=== PATIENT | male | born 1970 | race Caucasian/White ===

== ENCOUNTER 2017-12-07 02:18 | Emergency (ER) | payer MEDICAID ==
[~2017-12-07] VITALS: Ht 177.8 cm; Wt 85.0 kg
[~2017-12-07 02:18] MED LIST: ALBU18HF2 IH; ALBU8.5H8 IH; ALBU8HFA PO; CLIN-80 PO; HYDR12.55 PO; IBUP-1986 PO; PRED10TA PO; PRED20TA PO; PRED50TA PO
[2017-12-07] MEDS ORDERED: magnesium 2GM in 50ml NS 50 ML IV ONE (02:30)
[2017-12-07] MEDS ORDERED: normal saline 1000ML IV soln IVB ONE (02:30)
[2017-12-07] MEDS ORDERED: methylPREDNISolone sod succ 125mg/2ml vial IV ONE (02:30)
[2017-12-07] MEDS ORDERED: albuterol 2.5 MG/3 ML nebule CONTNEB PRN (02:30)
[2017-12-07] MEDS ORDERED: ipratropium/albuterol 3ml nebule NEB ONE (02:30)
[2017-12-07 02:46] LABS: BASOPHILS % (AUTO) 0.4 % (0-1); EOSINOPHILS # (AUTO) 0.7 X10'3 (0-0.9); EOSINOPHILS % (AUTO) 8.6 % (0-6); HEMATOCRIT 38.5 % (42.0-52.0); HEMOGLOBIN 12.9 g/dl (14.0-17.9); LYMPHOCYTES % (AUTO) 35.8 % (21-51); MEAN CORPUSCULAR HEMOGLOBIN 28.4 PG (27.0-31.0); MEAN CORPUSCULAR HGB CONC 33.7 % (33.0-36.5); MEAN CORPUSCULAR VOLUME 84.5 FL (78-98); MEAN PLATELET VOLUME 7.4 FL (7.4-10.4); MONOCYTES # (AUTO) 0.8 X10'3 (0-0.9); MONOCYTES % (AUTO) 9.3 % (2-12); NEUTROPHILS # (AUTO) 3.8 X10'3 (1.8-7.7); NEUTROPHILS % (AUTO) 45.9 % (42-75); PLATELET COUNT 290 X10'3 (140-440); RED BLOOD COUNT 4.55 X10'6 (4.70-6.10); RED CELL DISTRIBUTION WIDTH 13.9 % (11.5-14.5); WHITE BLOOD COUNT 8.3 X10'3 (4.5-11.0)
[2017-12-07] MEDS ORDERED: LISI1TAB13 PO (02:56)
[2017-12-07 02:57] LABS: PARTIAL THROMBOPLASTIN TIME 30 SECONDS (22-32); PROTHROMBIN TIME 10.4 SECONDS (9.0-12.0)
[2017-12-07 03:02] LABS: ALANINE AMINOTRANSFERASE 32 U/L (12-78); ALBUMIN 3.8 G/DL (3.4-5.0); ALBUMIN/GLOBULIN RATIO 1.2 (1.1-1.5); ALKALINE PHOSPHATASE 68 IU/L (46-116); ANION GAP 9 (8-16); ASPARTATE AMINO TRANSFERASE 22 U/L (10-37); BILIRUBIN,TOTAL 0.3 MG/DL (0.1-1.0); BLOOD UREA NITROGEN 18 MG/DL (7-18); BUN/CREATININE RATIO 18.8 (5.4-32.0); CALCIUM 8.8 MG/DL (8.5-10.1); CHLORIDE 106 MMOL/L (99-107); CREATININE 0.96 MG/DL (0.60-1.10); GLUCOSE 101 MG/DL (70-104); POTASSIUM 3.4 MMOL/L (3.5-5.1); SODIUM 144 MMOL/L (135-145); TOTAL CARBON DIOXIDE 28.6 MMOL/L (24-32); eGFR 83 ML/MIN
[2017-12-07 03:36] VITALS: BP 145/84
[2017-12-07] MEDS ORDERED: AZIT250T PO (03:56)
[2017-12-07] MEDS ORDERED: PRED10TA23 PO (03:56)
== END 2017-12-07 04:10 | disposition home or self-care (01) ==
LOC: ER 02:19
DX: J45.901 Unspecified asthma with (acute) exacerbation (principal); I10 Essential (primary) hypertension; F12.10 Cannabis abuse, uncomplicated; Z79.899 Other long term (current) drug therapy
CPT/HCPCS: 36415; 71045; 80053; 85025; 85610; 85730; 94644; 94760; 96365; 96375; 99291; J2930; J3475; J7030; 94640

== ENCOUNTER 2018-01-20 04:32 | Emergency (ER) | payer MEDICAID ==
[~2018-01-20] VITALS: Ht 177.8 cm; Wt 67.1 kg
[~2018-01-20 04:32] MED LIST changes: +AZIT250T PO; +LISI1TAB13 PO
[2018-01-20] MEDS ORDERED: methylPREDNISolone sod succ 125mg/2ml vial IV ONE (04:45)
[2018-01-20] MEDS ORDERED: albuterol 2.5 MG/3 ML nebule CONTNEB PRN (04:45)
[2018-01-20] MEDS ORDERED: magnesium 2GM in 50ml NS 50 ML IV ONE (04:55)
[2018-01-20 05:10] LABS: ABG BASE EXCESS 5.1 mmol/L (-2.0-3.0); ABG OXYGEN SATURATION 94.4 % (95-98); ABG PH (T) 7.449 (7.350-7.450); ABG PO2 (T) 68.8 mmHg (83-108); FCOHb 0.6 % (0.5-1.5); FMetHb 0.2 % (0.3-1.12); FO2Hb 93.6 % (94-100); PATIENT TEMPERATURE 36.6; TOTAL HEMOGLOBIN 14.7 G/dl (14.0-18.0)
[2018-01-20 05:41] LABS: BASOPHILS % (AUTO) 0.5 % (0-1); EOSINOPHILS % (AUTO) 11.1 % (0-6); HEMOGLOBIN 14.2 g/dl (14.0-17.9); LYMPHOCYTES # (AUTO) 3.2 X10'3 (1.1-4.8); LYMPHOCYTES % (AUTO) 36.6 % (21-51); MEAN CORPUSCULAR HEMOGLOBIN 28.5 PG (27.0-31.0); MEAN CORPUSCULAR HGB CONC 33.1 % (33.0-36.5); MEAN CORPUSCULAR VOLUME 86.2 FL (78-98); MEAN PLATELET VOLUME 7.4 FL (7.4-10.4); MONOCYTES # (AUTO) 0.8 X10'3 (0-0.9); MONOCYTES % (AUTO) 9.3 % (2-12); NEUTROPHILS # (AUTO) 3.7 X10'3 (1.8-7.7); NEUTROPHILS % (AUTO) 42.5 % (42-75); PLATELET COUNT 383 X10'3 (140-440); RED BLOOD COUNT 4.99 X10'6 (4.70-6.10); RED CELL DISTRIBUTION WIDTH 14.2 % (11.5-14.5); WHITE BLOOD COUNT 8.8 X10'3 (4.5-11.0)
[2018-01-20 06:22] LABS: PARTIAL THROMBOPLASTIN TIME 30 SECONDS (22-32); PROTHROMBIN TIME 10.2 SECONDS (9.0-12.0)
[2018-01-20 06:32] LABS: ALANINE AMINOTRANSFERASE 30 U/L (12-78); ALBUMIN 3.8 G/DL (3.4-5.0); ALBUMIN/GLOBULIN RATIO 1.1 (1.1-1.5); ALKALINE PHOSPHATASE 75 IU/L (46-116); ANION GAP 6 (8-16); ASPARTATE AMINO TRANSFERASE 27 U/L (10-37); BILIRUBIN,TOTAL 0.4 MG/DL (0.1-1.0); BLOOD UREA NITROGEN 21 MG/DL (7-18); CHLORIDE 102 MMOL/L (99-107); GLUCOSE 105 MG/DL (70-104); SODIUM 138 MMOL/L (135-145); TOTAL PROTEIN 7.3 G/DL (6.4-8.2); eGFR 79 ML/MIN
[2018-01-20] MEDS ORDERED: ALBU8HFA PO (07:07)
[2018-01-20] MEDS ORDERED: potassium Cl 20 mEq SR tablet PO STA (07:07)
[2018-01-20] MEDS ORDERED: PRED5TAB PO (07:07)
[2018-01-20] MEDS ORDERED: DOXY100C43 PO (07:07)
[2018-01-20 07:24] VITALS: BP 116/92
== END 2018-01-20 07:26 | disposition home or self-care (01) ==
LOC: ER 04:32
DX: J45.901 Unspecified asthma with (acute) exacerbation (principal); E87.6 Hypokalemia; J20.9 Acute bronchitis, unspecified; I10 Essential (primary) hypertension; F12.10 Cannabis abuse, uncomplicated; Z79.899 Other long term (current) drug therapy
CPT/HCPCS: 36415; 36600; 71045; 80053; 82803; 83605; 83880; 84484; 85018; 85025; 85610; 85730; 87040; 93005; 94644; 94760; 96365; 96375; 99285; J2930; J3475; 94640

== ENCOUNTER 2019-10-24 07:01 | Emergency (ER) | payer MEDICAID ==
[~2019-10-24] VITALS: Ht 177.8 cm; Wt 68.2 kg
[~2019-10-24 07:01] MED LIST changes: -CLIN-80 PO; +CLIN-90 PO; -LISI1TAB13 PO; +LISI1TAB29 PO; +PRED5TAB PO
[2019-10-24 07:07] VITALS: BP 144/101
--- NOTE | 2019-10-24 07:23 | NUR ---
02 SAT 98% RA, HR 102, WHEEZING THRU OUT
[2019-10-24] MEDS ORDERED: ipratropium/albuterol 3ml nebule NEB ONE (08:10)
[2019-10-24] MEDS ORDERED: prednisone 10mg tablet PO ONE (08:10)
[2019-10-24] MEDS ORDERED: predniSONE 20 mg tablet PO ONE (08:20)
[2019-10-24] MEDS ORDERED: DOXY-1 PO (08:27)
[2019-10-24] MEDS ORDERED: PRED10TA23 PO (08:27)
[2019-10-25] MEDS ORDERED: morphine 4 MG/ML inj SYRINge IV ONE (13:55)
== END 2019-10-24 08:47 | disposition home or self-care (01) ==
LOC: ER 07:02
DX: J45.901 Unspecified asthma with (acute) exacerbation (principal); J20.9 Acute bronchitis, unspecified; I10 Essential (primary) hypertension; F12.90 Cannabis use, unspecified, uncomplicated; Z79.2 Long term (current) use of antibiotics
CPT/HCPCS: 94640; 94760; 99283; J7512; J2270

== ENCOUNTER 2020-05-02 23:20 | Emergency (ER) | payer MEDICAID ==
[~2020-05-02] VITALS: Ht 177.8 cm; Wt 68.2 kg
[~2020-05-02 23:20] MED LIST changes: -CLIN-90 PO; +CLIN-97 PO
[2020-05-02 23:24] VITALS: BP 149/108
[2020-05-02] MEDS ORDERED: ipratropium/albuterol 3ml nebule NEB ONE (23:40)
[2020-05-02] MEDS ORDERED: methylPREDNISolone sod succ 125mg/2ml vial IV ONE (23:40)
[2020-05-02 23:49] LABS: BASOPHILS # (AUTO) 0.1 X10'3 (0-0.2); BASOPHILS % (AUTO) 0.7 % (0-1); EOSINOPHILS # (AUTO) 0.5 X10'3 (0-0.9); EOSINOPHILS % (AUTO) 5.2 % (0-6); LYMPHOCYTES # (AUTO) 2.7 X10'3 (1.1-4.8); LYMPHOCYTES % (AUTO) 29.2 % (21-51); MEAN CORPUSCULAR HEMOGLOBIN 27.6 PG (27.0-31.0); MEAN CORPUSCULAR HGB CONC 32.4 g/dL (33.0-36.5); MEAN CORPUSCULAR VOLUME 85.1 FL (78-98); MEAN PLATELET VOLUME 7.3 FL (7.4-10.4); MONOCYTES # (AUTO) 0.9 X10'3 (0-0.9); MONOCYTES % (AUTO) 9.6 % (2-12); NEUTROPHILS # (AUTO) 5.2 X10'3 (1.8-7.7); NEUTROPHILS % (AUTO) 55.3 % (42-75); PLATELET COUNT 293 X10'3 (140-440); RED CELL DISTRIBUTION WIDTH 13.9 % (11.5-14.5); WHITE BLOOD COUNT 9.4 X10'3 (4.5-11.0)
[2020-05-02 23:56] LABS: ALANINE AMINOTRANSFERASE 24 U/L (12-78); ALBUMIN 3.6 G/DL (3.4-5.0); ALBUMIN/GLOBULIN RATIO 1.1 (1.1-1.5); ALKALINE PHOSPHATASE 83 IU/L (46-116); ANION GAP 7 (8-16); ASPARTATE AMINO TRANSFERASE 25 U/L (10-37); BILIRUBIN,TOTAL 0.5 MG/DL (0.1-1.0); BLOOD UREA NITROGEN 21 MG/DL (7-18); BUN/CREATININE RATIO 16.3 (5.4-32.0); CALCIUM 8.4 MG/DL (8.5-10.1); CHLORIDE 105 MMOL/L (99-107); CREATININE 1.29 MG/DL (0.60-1.10); GLUCOSE 97 MG/DL (70-104); POTASSIUM 3.2 MMOL/L (3.5-5.1); SODIUM 142 MMOL/L (135-145); TOTAL CARBON DIOXIDE 30.5 MMOL/L (24-32); TOTAL PROTEIN 6.8 G/DL (6.4-8.2); eGFR 58 ML/MIN
[2020-05-03] MEDS ORDERED: ALBU8.5H8 INH (00:04)
[2020-05-03] MEDS ORDERED: PRED20TA PO (00:05)
== END 2020-05-03 00:38 | disposition home or self-care (01) ==
LOC: ER 23:20
DX: J45.901 Unspecified asthma with (acute) exacerbation (principal); I10 Essential (primary) hypertension; F12.90 Cannabis use, unspecified, uncomplicated; Z98.890 Other specified postprocedural states; Z79.2 Long term (current) use of antibiotics; Z79.899 Other long term (current) drug therapy
CPT/HCPCS: 36415; 71045; 80053; 83880; 84484; 85025; 93005; 94640; 96374; 99285; J2930; 94760

== ENCOUNTER 2020-07-18 21:24 | Emergency (ER) | payer MEDICAID ==
[~2020-07-18] VITALS: Ht 177.8 cm; Wt 66.6 kg
[~2020-07-18 21:24] MED LIST changes: +ALBU8.5H8 INH
[2020-07-18 21:42] VITALS: BP 151/116
[2020-07-18] MEDS ORDERED: ipratropium/albuterol 3ml nebule NEB ONE ×2 (22:00→22:55)
[2020-07-18] MEDS ORDERED: predniSONE 20 mg tablet PO ONE (22:00)
[2020-07-18] MEDS ORDERED: albuterol 2.5 MG/3 ML nebule CONTNEB PRN (22:55)
[2020-07-19] MEDS ORDERED: PRED20TA PO (00:33)
[2020-07-19] MEDS ORDERED: NEBU-208 (00:35)
[2020-07-19] MEDS ORDERED: ALB0.5UD IH (00:35)
== END 2020-07-19 01:01 | disposition home or self-care (01) ==
LOC: ER 21:24
DX: J45.901 Unspecified asthma with (acute) exacerbation (principal); I10 Essential (primary) hypertension; F12.90 Cannabis use, unspecified, uncomplicated; Z79.2 Long term (current) use of antibiotics; Z98.890 Other specified postprocedural states; Z79.899 Other long term (current) drug therapy
CPT/HCPCS: 94640; 94644; 99285; J7512; 94760; A7015

== ENCOUNTER 2020-07-31 21:39 | Emergency (ER) | payer MEDICAID ==
[~2020-07-31] VITALS: Ht 179.1 cm; Wt 65.2 kg
[~2020-07-31 21:39] MED LIST changes: +ALB0.5UD IH; +NEBU-208
[2020-07-31 21:46] VITALS: BP 167/99
[2020-07-31] MEDS ORDERED: ipratropium/albuterol 3ml nebule NEB ONE (22:00)
[2020-07-31] MEDS ORDERED: dexamethasone 4mg tablet PO ONE (22:45)
[2020-07-31] MEDS ORDERED: ALB0.5UD IH (22:47)
[2020-07-31] MEDS ORDERED: ALBU8HFA PO (22:47)
[2020-07-31] MEDS ORDERED: METH4TAB81 PO (22:47)
== END 2020-07-31 23:18 | disposition home or self-care (01) ==
LOC: ER 21:39
DX: J45.31 Mild persistent asthma with (acute) exacerbation (principal); I10 Essential (primary) hypertension; J45.909 Unspecified asthma, uncomplicated; Z79.899 Other long term (current) drug therapy
CPT/HCPCS: 94640; 94760; 99283

== ENCOUNTER 2020-08-27 21:16 | Emergency (ER) | payer MEDICAID ==
[~2020-08-27] VITALS: Ht 177.8 cm; Wt 68.2 kg
[~2020-08-27 21:16] MED LIST changes: +METH4TAB81 PO
[2020-08-27 21:24] VITALS: BP 158/108
[2020-08-27] MEDS ORDERED: penicillin V potassium 500mg tablet PO ONE (21:45)
[2020-08-27] MEDS ORDERED: HYDROcodone/acetaminophen 5mg/325mg tablet PO ONE (21:45)
[2020-08-27] MEDS ORDERED: PENI500T2 PO (21:49)
== END 2020-08-27 22:30 | disposition home or self-care (01) ==
LOC: ER 21:17
DX: K04.7 Periapical abscess without sinus (principal); I10 Essential (primary) hypertension; J45.909 Unspecified asthma, uncomplicated; F12.90 Cannabis use, unspecified, uncomplicated; Z98.890 Other specified postprocedural states; Z79.2 Long term (current) use of antibiotics; Z79.899 Other long term (current) drug therapy
CPT/HCPCS: 99283

== ENCOUNTER → 2020-08-28 | Emergency (ER) | payer MEDICAID ==
[~2020-08-28] VITALS: Ht 177.8 cm; Wt 68.2 kg
[~2020-08-28] MED LIST changes: +CefTRIAXone 250MG IM Kit w/LIDOcaine IM ONE; +CefTRIAXone 250MG inj IM ONE; +PENI500T2 PO
[2020-08-28 09:14] VITALS: BP 142/99
== END | disposition home or self-care (01) ==
LOC: ER 08:43
DX: K04.7 Periapical abscess without sinus (principal); R22.0 Localized swelling, mass and lump, head; K08.89 Other specified disorders of teeth and supporting structures; I10 Essential (primary) hypertension; J45.909 Unspecified asthma, uncomplicated; F12.90 Cannabis use, unspecified, uncomplicated; Z98.890 Other specified postprocedural states; Z88.1 Allergy status to other antibiotic agents; Z88.8 Allergy status to other drugs, medicaments and biological substances; Z79.2 Long term (current) use of antibiotics; Z79.899 Other long term (current) drug therapy
CPT/HCPCS: 96372; 99283; J0696

== ENCOUNTER 2020-10-03 13:57 | Inpatient (IN) | payer MEDICAID ==
[~2020-10-03] VITALS: Ht 177.8 cm; Wt 68.2 kg
[~2020-10-03 13:57] MED LIST changes: -ALB0.5UD IH; -CefTRIAXone 250MG IM Kit w/LIDOcaine IM ONE; -CefTRIAXone 250MG inj IM ONE; -PENI500T2 PO
[2020-10-03] MEDS ORDERED: methylPREDNISolone sod succ 125mg/2ml vial IV ONE (14:05)
[2020-10-03] MEDS ORDERED: albuterol 2.5 MG/3 ML nebule CONTNEB PRN (14:05)
[2020-10-03 14:18] LABS: BASOPHILS # (AUTO) 0.1 X10'3 (0-0.2); BASOPHILS % (AUTO) 0.8 % (0-1); EOSINOPHILS # (AUTO) 1.6 X10'3 (0-0.9); EOSINOPHILS % (AUTO) 16.3 % (0-6); HEMATOCRIT 45.5 % (42.0-52.0); HEMOGLOBIN 15.1 g/dl (14.0-17.9); LYMPHOCYTES # (AUTO) 2.3 X10'3 (1.1-4.8); LYMPHOCYTES % (AUTO) 22.6 % (21-51); MEAN CORPUSCULAR HEMOGLOBIN 28.2 PG (27.0-31.0); MEAN CORPUSCULAR HGB CONC 33.1 g/dL (33.0-36.5); MEAN CORPUSCULAR VOLUME 85.3 FL (78-98); MEAN PLATELET VOLUME 7.7 FL (7.4-10.4); MONOCYTES # (AUTO) 0.9 X10'3 (0-0.9); MONOCYTES % (AUTO) 9.1 % (2-12); NEUTROPHILS # (AUTO) 5.1 X10'3 (1.8-7.7); NEUTROPHILS % (AUTO) 51.2 % (42-75); PLATELET COUNT 283 X10'3 (140-440); RED BLOOD COUNT 5.33 X10'6 (4.70-6.10); RED CELL DISTRIBUTION WIDTH 14.5 % (11.5-14.5)
[2020-10-03 14:27] LABS: ANION GAP 9 (8-16); BLOOD UREA NITROGEN 15 MG/DL (7-18); BUN/CREATININE RATIO 17.4 (5.4-32.0); CALCIUM 8.7 MG/DL (8.5-10.1); CHLORIDE 103 MMOL/L (99-107); CREATININE 0.86 MG/DL (0.60-1.10); GLUCOSE 100 MG/DL (70-104); POTASSIUM 3.6 MMOL/L (3.5-5.1); SODIUM 142 MMOL/L (135-145); TOTAL CARBON DIOXIDE 29.6 MMOL/L (24-32); eGFR > 90 ML/MIN
[2020-10-03 14:28] LABS: ALANINE AMINOTRANSFERASE 21 U/L (12-78); ALBUMIN/GLOBULIN RATIO 1.1 (1.1-1.5); ALKALINE PHOSPHATASE 98 IU/L (46-116); ASPARTATE AMINO TRANSFERASE 15 U/L (10-37); BILIRUBIN,TOTAL 0.5 MG/DL (0.1-1.0); TOTAL PROTEIN 7.8 G/DL (6.4-8.2)
[2020-10-03] MEDS ORDERED: mag hydrox/Alum hydrox/simeth 30ml oral suspension PO PRN (17:15)
[2020-10-03] MEDS ORDERED: magnesium Cl slow-release 64mg tablet PO PRN (17:15)
[2020-10-03] MEDS ORDERED: potassium Cl 20 mEq SR tablet PO PRN ×2 (17:15)
[2020-10-03] MEDS ORDERED: morphine 2 MG/ML inj. syringe IV PRN (17:15)
[2020-10-03] MEDS ORDERED: magnesium 4gm in 100ml NS 100 ML IV PRN (17:15)
[2020-10-03] MEDS ORDERED: HYDROcodone/acetaminophen 5mg/325mg tablet PO PRN (17:15)
[2020-10-03] MEDS ORDERED: ondansetron/PF 4mg/2ml inj IV PRN (17:15)
[2020-10-03] MEDS ORDERED: magnesium hydroxide 30ml (MOM) UD suspension PO PRN (17:15)
[2020-10-03] MEDS ORDERED: potassium Cl 40MEQ/1/2NS 520ml 520 ML IV PRN ×2 (17:15)
[2020-10-03] MEDS ORDERED: magnesium 2GM in 50ml NS 50 ML IV PRN (17:15)
[2020-10-03] MEDS ORDERED: acetaminophen 325mg tablet PO PRN ×2 (17:15)
[2020-10-03] MEDS ORDERED: ERGO500056 PO (17:31)
[2020-10-03 17:58] LABS: D-DIMER 0.57 MG/L FEU (0-0.50)
[2020-10-03] MEDS: albuterol 2.5 MG/3 ML nebule NEB SCH (19:07)
--- NOTE | 2020-10-03 19:09 | NUR ---
Patient in room ED 4. I have received report from Velasquez MATHEWS and had the opportunity to ask questions and assume patient care.
[2020-10-03 19:35] VITALS: BP 158/98
--- NOTE | 2020-10-03 19:35 | NUR ---
pt to floor
[2020-10-03] MEDS: K and/or MAG REPLACEMENT MC SCH (20:00)
[2020-10-03] MEDS ORDERED: temazepam 15mg capsule PO PRN (21:00)
[2020-10-03] MEDS ORDERED: iohexol 350MG/ML 100ml bottle IV ONE (21:21)
[2020-10-03] MEDS: methylPREDNISolone sod succ 125mg/2ml vial IV SCH (21:44)
[2020-10-03] MEDS: heparin, porcine 5000 units/ml vial SQ SCH (21:44)
[2020-10-03 22:00] VITALS: BP 138/73
[2020-10-03 22:20] LABS: URINE AMPHETAMINE SCREEN POSITIVE (Neg); URINE BARBITUATE SCREEN NEGATIVE (Neg); URINE BENZODIAZEPINES SCREEN NEGATIVE (Neg); URINE CANNABINOID SCREEN POSITIVE (Neg); URINE COCAINE SCREEN NEGATIVE (Neg); URINE METHADONE SCREEN NEGATIVE (Neg); URINE OPIATE SCREEN NEGATIVE (Neg); URINE PHENCYCLIDINE SCREEN NEGATIVE (Neg)
[2020-10-04] MEDS: albuterol 2.5 MG/3 ML nebule NEB SCH ×3 (00:14→07:31)
[2020-10-04 02:00] VITALS: BP 134/97
[2020-10-04 06:00] VITALS: BP 121/87
--- NOTE | 2020-10-04 06:23 | NUR ---
Problems reprioritized. Patient report given, questions answered & plan of care reviewed with Leonor MATHEWS.
[2020-10-04 06:33] LABS: BASOPHILS % (AUTO) 0.2 % (0-1); EOSINOPHILS % (AUTO) 0 % (0-6); HEMATOCRIT 40.3 % (42.0-52.0); HEMOGLOBIN 13.6 g/dl (14.0-17.9); LYMPHOCYTES # (AUTO) 0.8 X10'3 (1.1-4.8); LYMPHOCYTES % (AUTO) 8.3 % (21-51); MEAN CORPUSCULAR HEMOGLOBIN 28.5 PG (27.0-31.0); MEAN CORPUSCULAR HGB CONC 33.7 g/dL (33.0-36.5); MEAN CORPUSCULAR VOLUME 84.5 FL (78-98); MEAN PLATELET VOLUME 7.7 FL (7.4-10.4); MONOCYTES # (AUTO) 0.2 X10'3 (0-0.9); MONOCYTES % (AUTO) 2.3 % (2-12); NEUTROPHILS # (AUTO) 8.7 X10'3 (1.8-7.7); NEUTROPHILS % (AUTO) 89.2 % (42-75); PLATELET COUNT 273 X10'3 (140-440); RED BLOOD COUNT 4.77 X10'6 (4.70-6.10); RED CELL DISTRIBUTION WIDTH 14.4 % (11.5-14.5); WHITE BLOOD COUNT 9.8 X10'3 (4.5-11.0)
[2020-10-04 06:42] LABS: ALANINE AMINOTRANSFERASE 19 U/L (12-78); ALBUMIN 3.6 G/DL (3.4-5.0); ALKALINE PHOSPHATASE 81 IU/L (46-116); ANION GAP 8 (8-16); ASPARTATE AMINO TRANSFERASE 11 U/L (10-37); BILIRUBIN,TOTAL 0.5 MG/DL (0.1-1.0); BLOOD UREA NITROGEN 24 MG/DL (7-18); BUN/CREATININE RATIO 26.4 (5.4-32.0); CHLORIDE 102 MMOL/L (99-107); CREATININE 0.91 MG/DL (0.60-1.10); GLUCOSE 139 MG/DL (70-104); MAGNESIUM 2.1 MG/DL (1.5-2.4); POTASSIUM 3.9 MMOL/L (3.5-5.1); SODIUM 138 MMOL/L (135-145); TOTAL CARBON DIOXIDE 28.4 MMOL/L (24-32); TOTAL PROTEIN 7.3 G/DL (6.4-8.2); eGFR 87 ML/MIN
[2020-10-04] MEDS: K and/or MAG REPLACEMENT MC SCH ×2 (08:00→20:00)
[2020-10-04] MEDS ORDERED: ipratropium/albuterol 3ml nebule NEB PRN (08:05)
[2020-10-04] MEDS: levoFLOXACIN-Levaquin 500mg/D5 100 ML IV SCH (09:21)
[2020-10-04] MEDS: methylPREDNISolone sod succ 125mg/2ml vial IV SCH ×2 (09:30→20:45)
[2020-10-04] MEDS: heparin, porcine 5000 units/ml vial SQ SCH ×2 (09:33→20:43)
[2020-10-04 11:00] VITALS: BP 142/96
[2020-10-04] MEDS: ipratropium/albuterol 3ml nebule NEB SCH ×4 (11:00→23:00)
[2020-10-04 15:00] VITALS: BP 137/72
[2020-10-04 18:00] VITALS: BP 138/86
--- NOTE | 2020-10-04 18:27 | NUR ---
Report to Yazmin MATHEWS
--- NOTE | 2020-10-04 18:30 | NUR ---
Patient in room PCU 3023. I have received report from Leonor MATHEWS and had the opportunity to ask questions and assume patient care.
[2020-10-04 20:38] LABS: CLARITY,URINE CLEAR (Clear); COLOR,URINE YELLOW (Yellow); GLUCOSE, URINE NEGATIVE (Neg); KETONES,URINE NEGATIVE (Neg); LEUKOCYTE ESTERASE ,URINE NEGATIVE (Neg); NITRITES, URINE NEGATIVE (Neg); OCCULT BLOOD,URINE NEGATIVE (Neg); PH,URINE 6.5 (4.8-8.0); PROTEIN,URINE NEGATIVE (Neg); UROBILINOGEN,URINE 0.2 E.U/dL (0.2-1.0)
[2020-10-04] MEDS: lactobacillus rhamnosus 10,000 MMU CELLS/CAPSULE PO SCH (20:43)
[2020-10-04 20:44] LABS: UA COLLECTION TYPE CLN CATCH MIDSTREAM
[2020-10-04 22:00] VITALS: BP 124/75
[2020-10-05 02:00] VITALS: BP 131/93
--- NOTE | 2020-10-05 06:31 | NUR ---
Patient in room PCU 3023. I have received report from Yazmin MATHEWS and had the opportunity to ask questions and assume patient care.
[2020-10-05 06:34] LABS: BASOPHILS % (AUTO) 0.1 % (0-1); EOSINOPHILS % (AUTO) 0 % (0-6); HEMATOCRIT 41.6 % (42.0-52.0); HEMOGLOBIN 13.5 g/dl (14.0-17.9); LYMPHOCYTES # (AUTO) 0.9 X10'3 (1.1-4.8); MEAN CORPUSCULAR HEMOGLOBIN 27.6 PG (27.0-31.0); MEAN CORPUSCULAR HGB CONC 32.4 g/dL (33.0-36.5); MEAN CORPUSCULAR VOLUME 85.3 FL (78-98); MEAN PLATELET VOLUME 8.1 FL (7.4-10.4); MONOCYTES # (AUTO) 0.9 X10'3 (0-0.9); MONOCYTES % (AUTO) 4.9 % (2-12); NEUTROPHILS # (AUTO) 16.4 X10'3 (1.8-7.7); PLATELET COUNT 284 X10'3 (140-440); RED BLOOD COUNT 4.87 X10'6 (4.70-6.10); RED CELL DISTRIBUTION WIDTH 14.7 % (11.5-14.5); WHITE BLOOD COUNT 18.2 X10'3 (4.5-11.0)
--- NOTE | 2020-10-05 06:42 | NUR ---
Problems reprioritized. Patient report given, questions answered & plan of care reviewed with Celestine MATHEWS.
[2020-10-05 06:58] LABS: ALANINE AMINOTRANSFERASE 17 U/L (12-78); ALBUMIN 3.5 G/DL (3.4-5.0); ALKALINE PHOSPHATASE 75 IU/L (46-116); ANION GAP 8 (8-16); ASPARTATE AMINO TRANSFERASE 9 U/L (10-37); BILIRUBIN,TOTAL 0.4 MG/DL (0.1-1.0); BLOOD UREA NITROGEN 32 MG/DL (7-18); BUN/CREATININE RATIO 39.5 (5.4-32.0); CALCIUM 8.7 MG/DL (8.5-10.1); CHLORIDE 103 MMOL/L (99-107); CREATININE 0.81 MG/DL (0.60-1.10); GLUCOSE 127 MG/DL (70-104); MAGNESIUM 2.3 MG/DL (1.5-2.4); POTASSIUM 4.5 MMOL/L (3.5-5.1); SODIUM 138 MMOL/L (135-145); TOTAL CARBON DIOXIDE 26.9 MMOL/L (24-32); eGFR > 90 ML/MIN
[2020-10-05 07:00] VITALS: BP 120/78
[2020-10-05] MEDS: ipratropium/albuterol 3ml nebule NEB SCH ×2 (07:22→11:23)
[2020-10-05] MEDS: K and/or MAG REPLACEMENT MC SCH (08:00)
[2020-10-05] MEDS: heparin, porcine 5000 units/ml vial SQ SCH (08:00)
[2020-10-05] MEDS: lactobacillus rhamnosus 10,000 MMU CELLS/CAPSULE PO SCH (09:18)
[2020-10-05] MEDS: levoFLOXACIN-Levaquin 500mg/D5 100 ML IV SCH (09:18)
[2020-10-05] MEDS: methylPREDNISolone sod succ 125mg/2ml vial IV SCH (09:18)
[2020-10-05] MEDS ORDERED: PRED20TA PO (10:08)
[2020-10-05] MEDS ORDERED: FLUT1DIS4 INH (10:08)
[2020-10-05] MEDS ORDERED: LEVO500T89 PO (10:08)
[2020-10-05 10:58] VITALS: BP 133/94
--- NOTE | 2020-10-05 12:12 | NUR ---
Patient safe for discharge per MD orders, prescriptions called into patient pharmacy, discharge instructions reviewed and questions answered, IV and tele DC, wheeled to lobby, picked up by family in private vehicle.
--- NOTE | 2020-10-06 16:06 | NUR ---
CASE MANAGEMENT DISCHARGE FOLLOW UP: Spoke with pt via telephone. Pt reports that he is feeling good. Denies SOB, dyspnea, CP, anxiety. States that he does have some small amount of wheezing but that it is improving. Verbalizes understanding of s/sx requiring further evaluation/emergent assistance. Pt verbalizes understanding of new and current medications. Pt verbalizes compliance with MD discharge instructions, states that he is staying away from his birds for the time being. Pt verbalizes understanding of the importance in making/keeping follow-up appointments, has appt tomorrow morning (10/07/20) @ 0900. Pt states no further questions/concerns at this time.
== END 2020-10-05 12:08 | disposition home or self-care (01) | DRG 133 ==
LOC: ER 13:57 → ED HOLD 17:13 → CANBEDREQ 17:20 → EDBEDREQ 18:22 → PCU 3S 19:20
PROVIDERS: ADMIT Internal Medicine; ATTEND Family Medicine
PROC: B32T1ZZ Computerized Tomography (CT Scan) of Left Pulmonary Artery using Low Osmolar Contrast (ICD-10-PCS; principal; 2020-10-03)
PROC: B3201ZZ Computerized Tomography (CT Scan) of Thoracic Aorta using Low Osmolar Contrast (ICD-10-PCS; 2020-10-03)
PROC: B32S1ZZ Computerized Tomography (CT Scan) of Right Pulmonary Artery using Low Osmolar Contrast (ICD-10-PCS; 2020-10-03)
DX: J96.01 Acute respiratory failure with hypoxia (principal); J45.41 Moderate persistent asthma with (acute) exacerbation; F12.90 Cannabis use, unspecified, uncomplicated; F15.90 Other stimulant use, unspecified, uncomplicated; I10 Essential (primary) hypertension; J44.9 Chronic obstructive pulmonary disease, unspecified; Z20.822 Contact with and (suspected) exposure to COVID-19; F17.220 Nicotine dependence, chewing tobacco, uncomplicated; Z88.1 Allergy status to other antibiotic agents; Z88.8 Allergy status to other drugs, medicaments and biological substances; Z71.6 Tobacco abuse counseling; Z71.51 Drug abuse counseling and surveillance of drug abuser
CPT/HCPCS: 36415; 71045; 71275; 80053; 80305; 81003; 83605; 83735; 83880; 84145; 85025; 85379; 85651; 87040; 87081; 87635; 93005; 94640; 94760; 96374; 99291; A7015; C9803; G0378; J1644; J1956; J2930; Q9967

== ENCOUNTER 2021-06-20 18:00 | Emergency (ER) | payer MEDICAID ==
[~2021-06-20 18:00] MED LIST changes: -ALBU8.5H8 IH; -ALBU8.5H8 INH; -ALBU8HFA PO; -AZIT250T PO; -CLIN-97 PO; +ERGO500056 PO; +FLUT1DIS4 INH; -HYDR12.55 PO; -IBUP-1986 PO; -LISI1TAB29 PO; -METH4TAB81 PO; -PRED10TA PO; -PRED20TA PO; -PRED50TA PO; -PRED5TAB PO
== END 2021-06-21 05:40 ==
LOC: MERGE 18:01 → EDBD 18:01 → ER 18:01
DX: I46.9 Cardiac arrest, cause unspecified (principal); J45.909 Unspecified asthma, uncomplicated; I73.89 Other specified peripheral vascular diseases
CPT/HCPCS: 31500; 99285